=== PATIENT | male | born 1995 | race Native Hawaiian/Other Pacific Islander ===

== ENCOUNTER 2019-02-03 16:51 | Emergency (ER) | payer OTHER ==
[2019-02-03 17:07] VITALS: RESP 16
[2019-02-03] MEDS ORDERED: Sodium Chloride 0.9% 1,000 ML IV STA (17:15)
[2019-02-03 18:05] LABS: ALB/GLOB RATIO 1.4 (1.0-2.1); ALBUMIN 4.9 g/dL (3.5-5.0); BLOOD UREA NITROGEN 11 mg/dl (9-20); CALCIUM 9.6 mg/dL (8.4-10.2); GFR NON-AFRICAN AMERICAN > 60
[2019-02-03 18:07] LABS: BASO % 0.2 % (0.0-2.0); EOS # 0.1 K/uL (0.0-0.7); EOS % 0.5 % (0.0-4.0); HEMOGLOBIN 15.8 g/dL (12.0-18.0); LYMPH # 2.5 K/uL (1.0-4.3); LYMPH % 12.8 % (20.0-40.0); MEAN CELL VOLUME 90.2 fl (80.0-94.0); MEAN CORPUSCULAR HEMOGLOBIN 28.9 pg (27.0-31.0); MEAN CORPUSCULAR HGB CONC 32.1 g/dL (33.0-37.0); MEAN PLATELET VOLUME 8.3 fl (7.2-11.7); MONO # 0.9 K/uL (0.0-0.8); MONO % 4.5 % (0.0-10.0); NEUT # 16.1 K/uL (1.8-7.0); RBC 5.48 Mil/uL (4.40-5.90); RED CELL DISTRIBUTION WIDTH 13.9 % (11.5-14.5); WHITE BLOOD COUNT 19.6 K/uL (4.8-10.8)
[2019-02-03 18:13] LABS: ALT/SGPT 36 U/L (21-72); AST/SGOT 36 U/L (17-59)
--- NOTE | 2019-02-03 18:20 | CT ---
Date of service: 02/03/2019 PROCEDURE: CT Abdomen and Pelvis without intravenous contrast HISTORY: severe L flank pain to LLQ COMPARISON: None. TECHNIQUE: Helical CT of the abdomen and pelvis was performed without oral or intravenous contrast as per referring physician request. Coronal and sagittal reformats were generated.. Contrast dose: None Radiation dose: Total exam DLP = 735.83 mGy-cm. This CT exam was performed using one or more of the following dose reduction techniques: Automated exposure control, adjustment of the mA and/or kV according to patient size, and/or use of iterative reconstruction technique. FINDINGS: LOWER THORAX: Unremarkable. LIVER: Punctate granuloma or other calcification at the central right lobe liver with the liver otherwise unremarkable appearing in its unenhanced state. GALLBLADDER AND BILE DUCTS: Unremarkable. PANCREAS: Unremarkable. No gross lesion or ductal dilatation. SPLEEN: Unremarkable. ADRENALS: Unremarkable. No mass. KIDNEYS AND URETERS: Unremarkable right kidney. Limited residual left hydroureteronephrosis appreciated, quite mild. No radiodense urolithiasis is appreciated bilaterally. VASCULATURE: Unremarkable. No aortic aneurysm. No aortic atherosclerotic calcification or mural plaque present. BOWEL: Unremarkable. No obstruction. No gross mural thickening. APPENDIX: Unremarkable. Normal appendix. PERITONEUM: Shotty mesenteric and pericecal lymph nodes may indicate limited mesenteric adenitis. No free fluid. No free air. LYMPH NODES: Unremarkable. No enlarged lymph nodes. BLADDER: 1.5 mm calculus is identified either in the left urinary bladder base of the lumen or at the distal part of the left UV junction. Trace residual left hydroureter noted. Urinary bladder is otherwise unremarkable appearing. REPRODUCTIVE: Unremarkable. BONES: No acute fracture. OTHER FINDINGS: None. IMPRESSION: A 1.5 mm calculus is identified at the left UVJ or left urinary bladder lumen base with limited residual obstructive uropathy remaining at the left kidney and ureter. No additional acute or subacute findings. Potential limited mesenteric adenitis.
--- NOTE | 2019-02-03 18:31 | ED PDOC ---
HPI: Abdomen Time Seen by Provider: 02/03/19 17:07 Chief Complaint (Nursing): Abdominal Pain Chief Complaint (Provider): Abdominal Pain Onset/Duration Of Symptoms: Hrs (@1400 today) Outside of [place] travel?: No Current Symptoms Are (Timing): Still Present Severity: Severe Location Of Pain/Discomfort: LLQ, Suprapubic Additional Complaint(s): Patient is a 23 year old male with no past medical history, who presents to the emergency department complaining of left flank pain, with sudden onset at 1400 today. Patients states that pain radiates to his left lower quadrant and his suprapubic area. He states the pain is constant and severe. Patient was seen at [facility] and was told to come to ER for further evaluation. He has not taken any medication for his pain. Patient states he does have chills and sweats but denies having any urinary or GI symptoms, trauma or injury. PMD: Maryann Wade Past Medical History Reviewed: Historical Data, Nursing Documentation, Vital Signs Vital Signs: Last Vital Signs Temp 98.0 F 02/03/19 17:03 Pulse 77 02/03/19 17:03 Resp 16 02/03/19 17:03 BP 147/87 02/03/19 17:03 Pulse Ox 98 02/03/19 17:03 - Medical History PMH: No Chronic Diseases - Surgical History Surgical History: No Surg Hx - Family History Family History: States: Unknown Family Hx - Social History Current smoker - smoking cessation education provided: No Ex-Smoker (has not smoked in the last 12 months): No Alcohol: None Drugs: Denies - Allergies Allergies/Adverse Reactions: Allergies Allergy/AdvReac Type Severity Reaction Status Date / Time No Known Allergies Allergy Verified 02/03/19 17:03 Review of Systems ROS Statement: Except As Marked, All Systems Reviewed And Found Negative Constitutional: Positive for: Chills, Sweats Gastrointestinal: Positive for: Abdominal Pain (LLQ pain and suprapubic ). Negative for: Nausea, Vomiting, Diarrhea Genitourinary Male: Negative for: Dysuria, Frequency, Incontinence, Hematuria Musculoskeletal: Positive for: Other (left flank pain) Physical Exam - Physical Exam Appears: Positive for: Uncomfortable, In Acute Distress (painful) Head Exam: Positive for: ATRAUMATIC, NORMOCEPHALIC Skin: Positive for: Warm, Diaphoresis Neck: Positive for: Painless ROM, Supple Cardiovascular/Chest: Positive for: Regular Rate, Rhythm. Negative for: Murmur Respiratory: Positive for: Normal Breath Sounds. Negative for: Respiratory Distress Gastrointestinal/Abdominal: Positive for: Tenderness (suprapubic and LLQ tenderness to palpation), Guarding (voluntary). Negative for: Mass, Rebound Back: Negative for: L CVA Tenderness, R CVA Tenderness Extremity: Positive for: Normal ROM. Negative for: Deformity Lymphatic: Negative for: Adenopathy Neurologic/Psych: Positive for: Alert. Negative for: Motor/Sensory Deficits - Laboratory Results Result Diagrams: 02/03/19 17:48 02/03/19 17:48 Lab Results: Total Bilirubin 0.6 mg/dl (0.2-1.3) 02/03/19 17:48 AST 36 U/L (17-59) 02/03/19 17:48 ALT 36 U/L (21-72) 02/03/19 17:48 Alkaline Phosphatase 55 U/L (38-126) 02/03/19 17:48 Total Protein 8.4 G/DL (6.3-8.2) H 02/03/19 17:48 Albumin 4.9 g/dL (3.5-5.0) 02/03/19 17:48 Globulin 3.5 gm/dL (2.2-3.9) 02/03/19 17:48 Albumin/Globulin Ratio 1.4 (1.0-2.1) 02/03/19 17:48 - ECG O2 Sat by Pulse Oximetry: 98 (RA) Pulse Ox Interpretation: Normal Medical Decision Making Medical Decision Making: Time: 1716 Impression: flank pain --Differential diagnosis includes but is not limited to renal colic, pyelonephritis, colitis, cystitis Plan: --ED urine dipstick --Tylenol 975 mg PO --Toradol 30 mg IV --Sodium chloride 1,000 ml --Zofran 4 mg IVP --Blood culture --Urine culture --Urinalysis --CBC with differential --Creatine Phosphokinase --Saline lock --CT abd and pelvis without contrast Time: 1815 CT abdomen finding: Accession No. : [id number] Patient Name / ID : LE CARBONE / [id number] Exam Date : 02/03/2019 17:49:52 ( Approved ) Study Comment : Sex / Age : M / 23Y Creator : Rigo Melo MD Dictator : Rigo Melo MD Flight Radio Operator : Program Project Analyst : Rigo Melo MD Approver2 : Report Date : 02/03/2019 18:16:37 My Comment : Date of service: 02/03/2019 PROCEDURE: CT Abdomen and Pelvis without intravenous contrast HISTORY: severe L flank pain to LLQ COMPARISON: None. TECHNIQUE: Helical CT of the abdomen and pelvis was performed without oral or intravenous contrast as per referring physician request. Coronal and sagittal reformats were generated.. Contrast dose: None Radiation dose: Total exam DLP = 735.83 mGy-cm. This CT exam was performed using one or more of the following dose reduction techniques: Automated exposure control, adjustment of the mA and/or kV according to patient size, and/or use of iterative reconstruction technique. FINDINGS: LOWER THORAX: Unremarkable. LIVER: Punctate granuloma or other calcification at the central right lobe liver with the liver otherwise unremarkable appearing in its unenhanced state. GALLBLADDER AND BILE DUCTS: Unremarkable. PANCREAS: Unremarkable. No gross lesion or ductal dilatation. SPLEEN: Unremarkable. ADRENALS: Unremarkable. No mass. KIDNEYS AND URETERS: Unremarkable right kidney. Limited residual left hydroureteronephrosis appreciated, quite mild. No radiodense urolithiasis is appreciated bilaterally. VASCULATURE: Unremarkable. No aortic aneurysm. No aortic atherosclerotic calcification or mural plaque present. BOWEL: Unremarkable. No obstruction. No gross mural thickening. APPENDIX: Unremarkable. Normal appendix. PERITONEUM: Shotty mesenteric and pericecal lymph nodes may indicate limited mesenteric adenitis. No free fluid. No free air. LYMPH NODES: Unremarkable. No enlarged lymph nodes. BLADDER: 1.5 mm calculus is identified either in the left urinary bladder base of the lumen or at the distal part of the left UV junction. Trace residual left hydroureter noted. Urinary bladder is otherwise unremarkable appearing. REPRODUCTIVE: Unremarkable. BONES: No acute fracture. OTHER FINDINGS: None. IMPRESSION: A 1.5 mm calculus is identified at the left UVJ or left urinary bladder lumen base with limited residual obstructive uropathy remaining at the left kidney and ureter. No additional acute or subacute findings. Potential limited mesenteric adenitis. Udip demonstrates blood. No leuks. Bloodwork demonstrates leukocytosis, but this is likely due to acute stress response. Pt clinically improved with no signs of infection. Stable for dc. DW pt findings and plan of care. Scribe Attestation: Documented by Rafiq Govea, acting as a scribe for Marixa Paul MD. Provider Scribe Attestation: All medical record entries made by the Scribe were at my direction and personally dictated by me. I have reviewed the chart and agree that the record accurately reflects my personal performance of the history, physical exam, m edical decision making, and the department course for this patient. I have also personally directed, reviewed, and agree with the discharge instructions and disposition. Disposition - Clinical Impression Clinical Impression: Renal calculus Counseled Patient/Family Regarding: Studies Performed, Diagnosis, Need For Followup - Disposition Referrals: [facility] [Provider Group] Disposition: Routine/Home Disposition Time: 19:44 Condition: STABLE Additional Instructions: PLEASE DRINK PLENTY OF HYDRATING FLUIDS. RETURN TO ER FOR RETURN OF SYMPTOMS. OTHERWISE FOLLOWUP WITH [facility] IN 2-3 DAYS. Instructions: Kidney Stones (DC) Forms: [facility] School/Work Excuse
[2019-02-03 19:46] LABS: URINE BACTERIA RARE (<OCC); URINE BILIRUBIN NEGATIVE (NEGATIVE); URINE BLOOD LARGE (NEGATIVE); URINE CLARITY SLIGHTY-CLOUDY (Clear); URINE COLOR YELLOW (YELLOW); URINE GLUCOSE (UA) NEG (NEGATIVE); URINE HYALINE CAST 0-2 /hpf (0-2); URINE LEUKOCYTE ESTERASE NEG Leu/uL (Negative); URINE PROTEIN NEGATIVE (NEGATIVE); URINE UROBILINOGEN 0.2-1.0 mg/dL (0.2-1.0)
[2019-02-03 20:02] VITALS: BP 124/68; PULSE 86; TEMP 98.6; O2SAT 97
== END 2019-02-03 20:02 | disposition home or self-care (01) ==
LOC: H.ER 16:51
DX: N20.0 Calculus of kidney (principal); D72.829 Elevated white blood cell count, unspecified
CPT/HCPCS: 74176; 80053; 81003; 82550; 85025; 87040; 87086; 96374; 99283; J1885; J2405; J7030